=== PATIENT | female | born 1965 | race African-American/Black ===

== ENCOUNTER 2024-04-06 08:02 | Inpatient (IN) | payer MEDICAID, OTHER ==
[~2024-04-06] VITALS: Ht 177.8 cm; Wt 72.1 kg
[2024-04-06] MEDS: KETOROLAC 30MG/ML VIAL IV SCH
[~2024-04-06 08:02] MED LIST: ASPI-518 PO; LISI20TA31 PO; METF100C2 PO; METO25TA6 PO
[2024-04-06 08:59] LABS: BASOPHILS % 0.3 % (0.0-2.0); EOSINOPHILS % 0.8 % (0.0-5.0); HEMATOCRIT. 41.6 % (36.0-48.0); HEMOGLOBIN. 13.3 g/dL (12.0-16.0); LYMPHOCYTES % 23.7 % (20.0-50.0); MEAN CORPUSCULAR HEMOGLOBIN 28.2 pg (28.0-32.0); MEAN CORPUSCULAR VOLUME 87.9 fL (81.0-99.0); MEAN PLATELET VOLUME 7.7 fl (7.4-10.4); NEUTROPHILS % 65.2 % (40.0-76.0); PLATELET 231 x1000/uL (130-400); RED BLOOD CELL COUNT 4.73 mill/uL (4.2-5.4); RED CELL DISTRIBUTION WIDTH 13.3 % (11.6-14.6); WHITE BLOOD COUNT 5.6 x1000/uL (4.5-11.0)
[2024-04-06 09:04] LABS: CHLORIDE 103 mEq/L (98-107); POTASSIUM 4.3 mEq/L (3.5-5.1); SODIUM 138 mEq/L (136-145)
[2024-04-06 09:05] LABS: CARBON DIOXIDE 29 mEq/L (21-32)
[2024-04-06 09:10] LABS: CREATININE 0.6 mg/dL (0.6-1.0); GLUCOSE 162 mg/dL (70-105)
[2024-04-06 09:11] LABS: UREA NITROGEN BLOOD 15 mg/dL (9-23)
[2024-04-06] MEDS ORDERED: ONDANSETRON HCL 4MG/2ML INJ IV PRN (14:30)
[2024-04-06] MEDS ORDERED: HYDROCODONE/ACETAMINOPHEN 5/325MG TABLET PO PRN (14:30)
[2024-04-06] MEDS ORDERED: ACETAMINOPHEN 325MG TABLET PO PRN (14:30)
[2024-04-06] MEDS ORDERED: CLONIDINE 0.1MG TABLET PO PRN ×2 (14:30)
[2024-04-06] MEDS ORDERED: MORPHINE SULFATE 2 MG/ML INJ (NOT FOR IM USE) IV PRN (14:30)
[2024-04-06] MEDS ORDERED: NALOXONE HCL 0.4MG/ML VIAL IV PRN (14:45)
[2024-04-06] MEDS: PANTOPRAZOLE 40MG DR TABLET PO SCH (16:13)
[2024-04-06] MEDS: ENOXAPARIN 40MG/0.4ML SYR SUBCUT SCH (16:13)
[2024-04-06 18:00] VITALS: BP 159/87; PULSE 90; RESP 21; TEMP 36.61404; TEMP 36.6404; O2SAT 99
[2024-04-06 20:00] VITALS: BP 178/83; PULSE 80; RESP 20; TEMP 36.50292; O2SAT 100
[2024-04-06] MEDS ORDERED: ZOLPIDEM TARTRATE 5MG TABLET PO PRN (21:00)
[2024-04-06] MEDS ORDERED: DEXTROSE 50% WATER 50ML SYRINGE IV PRN (23:30)
[2024-04-06] MEDS: CLONIDINE 0.1MG TABLET PO PRN (23:32)
[2024-04-07] VITALS: BP 166/79; PULSE 82; RESP 20; TEMP 36.22512; O2SAT 95
[2024-04-07 04:00] VITALS: BP 136/69; PULSE 98; RESP 20; TEMP 36.22512; O2SAT 100
[2024-04-07] MEDS: BLOOD SUGAR DIAGNOSTIC STRIP TEST SCH (06:38)
[2024-04-07] MEDS: INSULIN LISPRO 100 UNITS/ML SUBCUT SCH (06:53)
[2024-04-07 07:35] LABS: CHLORIDE 102 mEq/L (98-107); POTASSIUM 3.8 mEq/L (3.5-5.1); SODIUM 137 mEq/L (136-145)
[2024-04-07 07:36] LABS: CARBON DIOXIDE 29 mEq/L (21-32)
[2024-04-07 07:37] LABS: CALCIUM 9.7 mg/dL (8.7-10.4)
[2024-04-07 07:41] LABS: CREATININE 0.6 mg/dL (0.6-1.0); GLUCOSE 161 mg/dL (70-105); UREA NITROGEN BLOOD 11 mg/dL (9-23)
[2024-04-07 08:00] VITALS: BP 133/84; PULSE 85; RESP 20; TEMP 36.114; O2SAT 100
[2024-04-07 08:21] LABS: BASOPHILS % 0.4 % (0.0-2.0); EOSINOPHILS % 0.8 % (0.0-5.0); HEMOGLOBIN. 12.4 g/dL (12.0-16.0); LYMPHOCYTES % 30.3 % (20.0-50.0); MEAN CORPUSCULAR HEMOGLOBIN 27.9 pg (28.0-32.0); MEAN CORPUSCULAR HGB CONC 31.7 g/dL (31.0-37.0); MEAN PLATELET VOLUME 8.2 fl (7.4-10.4); MONOCYTES % 9.4 % (2.0-8.0); NEUTROPHILS % 59.1 % (40.0-76.0); PLATELET 229 x1000/uL (130-400); RED BLOOD CELL COUNT 4.43 mill/uL (4.2-5.4); WHITE BLOOD COUNT 4.4 x1000/uL (4.5-11.0)
[2024-04-07] MEDS: METOPROLOL TARTRATE 50MG TABLET PO SCH (08:29)
[2024-04-07 12:00] VITALS: BP 145/80; PULSE 73; RESP 20; TEMP 36.22512; O2SAT 98
[2024-04-07 16:00] VITALS: BP 138/84; PULSE 76; RESP 20; TEMP 36.16956; O2SAT 97
[2024-04-07 20:00] VITALS: BP 144/86; PULSE 92; RESP 20; TEMP 36.22512; O2SAT 98
[2024-04-07] MEDS ORDERED: ENOXAPARIN 40MG/0.4ML SYR SUBCUT ONE (20:30)
[2024-04-08 04:00] VITALS: BP 161/87; PULSE 82; RESP 20; TEMP 36.22512; O2SAT 100
[2024-04-08 08:17] VITALS: BP 177/94; PULSE 79; RESP 20; TEMP 36.05844; O2SAT 100
[2024-04-08] MEDS: FAMOTIDINE 20MG TABLET PO SCH (09:08)
[2024-04-08 10:25] VITALS: BP 144/86; PULSE 92; TEMP 97.2; O2SAT 98
== END 2024-04-08 10:50 | disposition home or self-care (01) | DRG 351 ==
LOC: ER 08:02 → 5WST 10:26 → 6WST 18:04
PROVIDERS: ADMIT Internal Medicine; ATTEND Internal Medicine
DX: S93.401A Sprain of unspecified ligament of right ankle, initial encounter (principal); E11.9 Type 2 diabetes mellitus without complications; M25.571 Pain in right ankle and joints of right foot; I10 Essential (primary) hypertension; Z79.899 Other long term (current) drug therapy
CPT/HCPCS: 36415; 73600; 73620; 80048; 82962; 83036; 85025; 93970; 97161; 99285; J1650; J1815; J1885